=== PATIENT | female | born 1945 | race Hispanic/Latino ===

== ENCOUNTER 2020-07-16 16:45 | Emergency (ER) | payer MEDICARE ==
[2020-07-16] MEDS ORDERED: ACETAMINOPHEN 325 MG TAB ONE (18:05)
== END 2020-07-16 19:32 | disposition home or self-care (01) ==
LOC: EDH 16:45
DX: S93.402A Sprain of unspecified ligament of left ankle, initial encounter (principal); S09.90XA Unspecified injury of head, initial encounter; M54.2 Cervicalgia; S20.229A Contusion of unspecified back wall of thorax, initial encounter; M25.562 Pain in left knee; W18.39XA Other fall on same level, initial encounter; Y93.01 Activity, walking, marching and hiking; Y92.89 Other specified places as the place of occurrence of the external cause; Y99.8 Other external cause status
CPT/HCPCS: 70450; 71250; 72125; 73562; 73610; 74176

== ENCOUNTER → 2024-07-30 | Outpatient (CLI) | payer OTHER, MEDICARE ==
--- NOTE | 2024-07-30 14:31 | HMCIMG ---
Exam Type: US ARTERIAL BILAT LOW EXT DUPL Clinical Information: LEG PAIN Comparison: None Findings: Diffuse bilateral plaque is identified. There are normal triphasic waveforms of the right common femoral artery and proximal superficial femoral artery, left common femoral artery through the popliteal artery and the left anterior tibial artery. There are biphasic waveforms of the right superficial femoral artery, popliteal artery and runoff, left dorsalis pedis artery consistent with moderate nonocclusive hemodynamically significant disease. There are monophasic abnormal waveforms of the left posterior tibial artery consistent with severe nonocclusive disease. IMPRESSION: Peripheral vascular disease as noted.
--- NOTE | 2024-07-30 14:31 | HMCIMG ---
Exam Type: US VENOUS DOPPLER BILATERAL Clinical Information: LEG PAIN Comparison: None Findings: The examination shows normal deep venous system. There is normal compressibility at all levels. There is no intraluminal clot. There is no occlusion. Adequate response is obtained on augmentation. Impression: No evidence of DVT.
== END | disposition home or self-care (01) ==
LOC: RAH 12:44
PROVIDERS: ATTEND Nurse Practitioner Family
DX: I73.9 Peripheral vascular disease, unspecified (principal); M79.604 Pain in right leg; M79.605 Pain in left leg
CPT/HCPCS: 93925; 93970